=== PATIENT | male | born 1990 ===

== ENCOUNTER 2023-04-29 11:22 | Outpatient (AMB) | payer OTHER, SELFPAY ==
--- NOTE | 2023-04-29 12:09 | MHC.OFFWIV ---
Intake Vital Signs 04/29/23 12:10 Height 5 ft 6 in Weight 214 lb 2 oz BMI 34.6 BP 118/84 Blood Pressure Location Rt brachial Position Sitting Pulse 77 Pulse Source Pulse Oximeter Temp 98.1 F Temp Source Oral Pulse Oximetry (%) 98 Oxygen Delivery Method Room Air Oxygen Flow Rate 98.1 Intake Visit Reasons: congestion,ear pain Intake Note: Pt presents to the office today for a walk in visit for C/O congestion and left ear pain/pressure. Pt states this started about a week ago. Patient Tobacco Use Status: Never used Tobacco Allergies No Known Allergies Allergy (Verified 04/29/23 12:13) HPI congestion,ear pain HPI Details 32 y/o male presents today with complaints of congestion and L ear pain x1 week. 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 He denies any fevers/kids but notes a cough the last couple days. He reports mostly head congestion and postnasal drip. [facility] Social History (Updated 04/29/23 @ 12:14 by Radha Davison MA) Household Members: None Alcohol intake: never Patient Tobacco Use Status: Never used Tobacco Substance Use Type: Marijuana Review of Systems Const Denies chills, Denies fatigue, Denies fever(s), Denies headache(s) and Denies weakness ENT Denies dizziness, Denies headache(s) and Reports nasal congestion Card Denies dyspnea Resp Denies cough, Denies dyspnea, Denies wheezing and Denies other (shortness of breath) Musc Denies numbness and Denies tingling Neuro Denies dizziness, Denies headache(s), Denies numbness, Denies tingling and Denies weakness Psych Denies anxiety and Denies depression Endo Denies fatigue Aller/Immun Denies wheezing Physical Exam Vital Signs: Last Vital Signs Temp 98.1 F 04/29/23 12:10 Pulse 77 04/29/23 12:10 BP 118/84 04/29/23 12:10 Pulse Ox 98 04/29/23 12:10 Oxygen Delivery Method Room Air 04/29/23 12:10 Oxygen Flow Rate 98.1 04/29/23 12:10 BMI result Body Mass Index 34.6 Const General: well developed; No acute distress Nutritional Appearance: well nourished Orientation/consciousness: patient oriented x3 HEENT Head: Yes normocephalic and Yes atraumatic Eyes General: appearance normal, both eyes and all related structures Pupils: Equal, round and reactive pupils present EOM: EOMs intact bilaterally Resp Effort & Inspection: normal respiratory effort Neuro General: patient oriented x3 and gait normal Cranial nerves: Yes Equal, round and reactive pupils present Psych Affect: normal affect Assessment & Plan Assessment & Plan (1) Viral illness: Code(s): B34.9 - Viral infection, unspecified Plan: Viral?illness There?is?no?antibiotic?medication?for?viruses.??They?must?run?their?course.??Most?average?5-7?days?but?7-10?days?is?not?uncommon?and?up?to?14?days?is?still?possible.??A?cough?is?often?the?last?symptom?to?resolve?and?this?can?last?for?weeks?in?some?ca ses. Rest Hydrate?well?-??Drink?plenty?of?fluids.??Especially?water. Tylenol?or?ibuprofen?for?muscle?aches,?headache,?fever/discomfort Can?use?gdrm-ppe-cjjwnhr?medications?for?cough?such?as?Delsym?or?DayQuil.??Prescription?cough?medicines?have?been?shown?to?be?no?better. Will?check?COVID/flu/RSV Will?give?him?a?note?to?be?out?of?work?for?the?next?2?days?pending?test?results.??If?negative?he?can?return?to?work?when?he?is?feeling?better.??If?positive?he?should?remain?out?of?work?until?next?Saturday. (2) Left otitis media: Code(s): H66.92 - Otitis media, unspecified, left ear Plan: Likely?secondary?to?nasal?congestion?from?viral?illness Start?amoxicillin Warm?compress Orders: Orders SARS-CoV2/FLU/RSV Today B34.9 - Viral infection, unspecified, Z20.822 - Contact with and (suspected) exposure to COVID-19 Medications: New amoxicillin 500 mg PO Q12H 20 tabs 0RF 10 days Coding Level of Care Code Est Pt Level 3 (53844) Diagnoses Viral illness B34.9 Left otitis media H66.92
[2023-04-29 12:10] VITALS: BP 118/84; PULSE 77; TEMP 36.7; O2SAT 98; BMI 34.6
== END 2023-04-29 12:58 | disposition home or self-care (01) ==
PROVIDERS: Visit Provider Family Medicine
DX: B34.9 Viral infection, unspecified (principal); H66.92 Otitis media, unspecified, left ear
CPT/HCPCS: 99213

== ENCOUNTER 2023-04-29 12:59 | Outpatient (REF) | payer OTHER, SELFPAY ==
[2023-04-29 15:28] LABS: Influenza A PCR NEGATIVE (Negative); Influenza B PCR NEGATIVE (Negative); Resp Syncy Virus RNA Qual PCR NEGATIVE (Negative); SARS COV2 PCR INHOUSE NEGATIVE (Negative)
== END 2023-04-29 13:00 | disposition home or self-care (01) ==
LOC: HO.LAB 12:59
PROVIDERS: Visit Provider Family Medicine
DX: Z20.822 Contact with and (suspected) exposure to COVID-19 (principal); B34.9 Viral infection, unspecified
CPT/HCPCS: 0241U